=== PATIENT | female | born 1950 | race Caucasian/White ===

== ENCOUNTER → 2018-04-18 | Outpatient (CLI) | payer MEDICARE, OTHER ==
[2017-10-05 07:00] VITALS: BP 140/68
[~2018-04-18] MED LIST: CHOL2000 PO; FLUT9.9S NS; LORA10TA68 PO
--- NOTE | 2018-04-18 14:24 | CARD ---
MR#: [id number] Date of Study: 04/18/2018 Ordering Physician: JOHN GORMAN, Referring Physician: JOHN GORMAN, Tech: Pattie Goodson APPROVED REPORT EXAM: Two-dimensional and M-mode echocardiogram with Doppler and color Doppler. Other Information Quality : AverageHR: 69bpm Rhythm : Atrial FibrillationNSR INDICATION History of Super Ventricular Tachycardia 2D DIMENSIONS RVDd1.9 (2.9-3.5cm)Left Atrium(2D)2.3 (1.6-4.0cm) IVSd0.6 (0.7-1.1cm)Aortic Root(2D)3.0 (2.0-3.7cm) LVDd4.0 (3.9-5.9cm)LVOT Diameter1.9 (1.8-2.4cm) PWd1.1 (0.7-1.1cm)LVDs2.6 (2.5-4.0cm) FS (%) 33.5 %SV43.4 ml LVEF(%)62.9 (>50%) Aortic Valve AoV Peak North.127.1cm/sAoV VTI28.4cm AO Peak GR.6.5mmHgLVOT Peak North.108.2cm/s AO Mean GR.3mmHgAVA (VMAX)2.35cm2 Mitral Valve MV E Txeovvct94.6cm/sMV DECEL SDMX046qw MV A Xwlgpdaa87.8cm/sE/A Ratio1.1 Pulmonary Valve PV Peak Rrrvylxi72.1cm/s Tricuspid Valve TR P. Auuokmbm949bs/sRAP OZKZVSRE1dmPu TR Peak Gr.79edZfKWDZ77uwXe LEFT VENTRICLE The left ventricle is normal size. There is normal left ventricular wall thickness. The left ventricu lar systolic function is normal and the ejection fraction is within normal range. The Ejection Fracti on is 55-60%. There is normal LV segmental wall motion. Transmitral Doppler flow pattern is Grade II- pseudonormal filling dynamics. RIGHT VENTRICLE The right ventricle is normal size. There is normal right ventricular wall thickness. The right ventr icular systolic function is normal. ATRIA The left atrium size is normal. The right atrium size is normal. The interatrial septum is intact wit h no evidence for an atrial septal defect or patent foramen ovale as noted on 2-D or Doppler imaging. AORTIC VALVE The aortic valve is normal in structure and function. Doppler and Color Flow revealed no significant aortic regurgitation. There is no significant aortic valvular stenosis. MITRAL VALVE The mitral valve is normal in structure and function. There is no mitral valve stenosis. Doppler and Color Flow revealed no mitral valve regurgitation noted. TRICUSPID VALVE The tricuspid valve is normal in structure and function. Doppler and Color Flow revealed trace tricus pid regurgitation. There is no tricuspid valve stenosis. PULMONIC VALVE The pulmonic valve is not well visualized. Doppler and Color Flow revealed no pulmonic valvular regur gitation. GREAT VESSELS The aortic root is normal in size. The IVC is normal in size and collapses >50% with inspiration. PERICARDIAL EFFUSION There is no evidence of significant pericardial effusion. Critical Notification Critical Value: No <Conclusion> The left ventricle is normal size. The left ventricular systolic function is normal and the ejection fraction is within normal range. The Ejection Fraction is 55-60%. There is no significant aortic valvular stenosis. Doppler and Color Flow revealed no significant aortic regurgitation. Doppler and Color Flow revealed no mitral valve regurgitation noted. Doppler and Color Flow revealed trace tricuspid regurgitation. Signed by : Lazaro Dumont MD Electronically Approved : 04/18/2018 14:23:38
== END | disposition home or self-care (01) ==
LOC: ECHO 12:08
PROVIDERS: ATTEND Internal Medicine Cardiovascular Disease
DX: I49.9 Cardiac arrhythmia, unspecified (principal)
CPT/HCPCS: 93306

== ENCOUNTER → 2019-06-10 | Outpatient (CLI) | payer MEDICARE, OTHER ==
[2017-10-05 07:00] VITALS: BP 140/68
--- NOTE | 2019-06-10 16:23 | CARD ---
MR#: [id number] Date of Study: 06/10/2019 Ordering Physician: JOHN GORMAN, Referring Physician: JOHN GORMAN, Tech: Pattie Goodson APPROVED REPORT EXAM: Two-dimensional and M-mode echocardiogram with Doppler and color Doppler. Other Information Quality : FairHR: 72bpm INDICATION Arrhythmia 2D DIMENSIONS Left Atrium(2D)2.2 (1.6-4.0cm)IVSd1.0 (0.7-1.1cm) Aortic Root(2D)2.9 (2.0-3.7cm)LVDd3.8 (3.9-5.9cm) LVOT Diameter2.1 (1.8-2.4cm)PWd0.8 (0.7-1.1cm) LVDs2.3 (2.5-4.0cm)FS (%) 38.4 % SV42.5 mlLVEF(%)69.4 (>50%) Aortic Valve AoV Peak North.108.0cm/sAoV VTI17.6cm AO Peak GR.4.7mmHgLVOT Peak North.84.6cm/s LVOT VTI 17.01cmAO Mean GR.2mmHg [place] (VMAX)2.16ax6ISP (VTI)3.21cm2 Mitral Valve MV E Jffanpdl72.2cm/sMV DECEL LGRW671mu MV A Tsvwzaib80.4cm/sMV SCJ897ol E/A Ratio1.0MVA (PHT)2.12cm2 TDI E/Lateral E'5.0E/Medial E'7.8 Pulmonary Valve PV Peak Uivuzint438.7cm/sPV Peak Grad.4mmHg Tricuspid Valve TR P. Cuirhusj666ly/sRAP PHDURWAZ3miHv TR Peak Gr.72rwJrDXGL73lfSx Pulmonary Vein S1 Uhsghktq79.2cm/sD2 Ouvtqjyu06.6cm/s PVa rscljfic558kuay LEFT VENTRICLE The left ventricle is normal size. There is normal left ventricular wall thickness. The left ventricu lar systolic function is normal and the ejection fraction is within normal range. The Ejection Fracti on is 55%. There is normal LV segmental wall motion. Transmitral Doppler flow pattern is Grade I-abno rmal relaxation pattern. RIGHT VENTRICLE The right ventricle is normal size. There is normal right ventricular wall thickness. The right ventr icular systolic function is normal. ATRIA The left atrium size is normal. The right atrium size is normal. The interatrial septum is intact wit h no evidence for an atrial septal defect or patent foramen ovale as noted on 2-D or Doppler imaging. AORTIC VALVE The aortic valve is thickened but opens well. Doppler and Color Flow revealed no significant aortic r egurgitation. There is no significant aortic valvular stenosis. MITRAL VALVE The mitral valve is normal in structure and function. There is no evidence of mitral valve prolapse. There is no mitral valve stenosis. Doppler and Color-flow revealed trace mitral regurgitation. TRICUSPID VALVE The tricuspid valve is normal in structure and function. Doppler and Color Flow revealed trace tricus pid regurgitation with an estimated PAP of 25 mmHg. There is no tricuspid valve stenosis. PULMONIC VALVE The pulmonic valve is not well visualized. Doppler and Color Flow revealed no pulmonic valvular regur gitation. There is no pulmonic valvular stenosis. GREAT VESSELS The aortic root is normal in size. The IVC is normal in size and collapses >50% with inspiration. PERICARDIAL EFFUSION There is no evidence of significant pericardial effusion. Critical Notification Critical Value: No <Conclusion> The left ventricular systolic function is normal and the ejection fraction is within normal range. Th e Ejection Fraction is 55%. There is normal LV segmental wall motion. Signed by : Mookie Mcfadden, Electronically Approved : 06/10/2019 16:23:11
== END | disposition home or self-care (01) ==
LOC: ECHO 10:45
PROVIDERS: ATTEND Internal Medicine Cardiovascular Disease
DX: I49.9 Cardiac arrhythmia, unspecified (principal)
CPT/HCPCS: 93306

== ENCOUNTER → 2019-09-02 | Outpatient (CLI) | payer MEDICARE, OTHER ==
[2017-10-05 07:00] VITALS: BP 140/68
[~2019-09-02] MED LIST changes: +REGADENOSON 0.4 MG/5 ML DISP.SYRIN. IV ONE
--- NOTE | 2019-09-04 14:40 | RAD ---
MR#: [id number] Date of Study: 09/02/2019 Ordering Physician: JOHN GORMAN Referring Physician: ANA HOOPER Tech: RT Abrahan MuñozR) (N) APPROVED REPORT Test Type: Pharmacological Stress Nurse/Tech: Mónica Rushing RN Test Indications: PSVT Cardiac History: Family history Medications: See Electronic Medical Record Medical History: See Electronic Medical Record Resting ECG: SR with PVCs Resting Heart Rate: 67 bpm Resting Blood Pressure: 134/71mmHg Pretest Chest Pain: No chest pain Nurse/Tech Notes S1,S2 and lungs clear to auscultation. Consent: The procedure was explained to the patient in lay terms. Informed consent was witnessed. Dawood eout was entered into [employer] History and Stress Test performed by RT Wanda (R) (N) Pharm. Details Pharmacologic stress testing was performed using 0.4mg per 5ml of regadenoson given intravenously ove r 7-10 seconds. Stress Symptoms Fatigue POST EXERCISE Reason for Termination: Infusion complete Target HR: No Max HR: 116 bpm Max Blood Pressure: 136/58mmHg Blood Pressure response to exercise: Normal blood pressure response during stress. Heart Rate response to exercise: WNL Chest Pain: No. Arrhythmia: Yes. PVCs ST Change: No. INTERPRETATION Stress EKG Conclusion: Baseline EKG showed sinus rhythm. No ischemic changes at peak stress. PVC's without any significant arrhythmias. Imaging Protocol IMAGE PROTOCOL: Rest Tc-99m/stress Tc-99m 1 day Rest: Stress: Viability: Radiopharm.Tc99m LzuoetumdDj78k Sestamibi Dose10.5mCi 30mCi Duration 15min. 10min. Img Date 09/02/2019 09/02/2019 Inj-Img Ofwq85elg. 60min. Rest Admin Site:IV - Left AntecubitalAdministrator:RT Lanre Muñoz)(N) Stress Admin Site: IV - Left AntecubitalAdministrator: THEODORA Hoyos, ARRT (R)(N) STRESS DATA End Diast. Vol.41.0mlAv. Heart Rate88.0bpm End Syst. Vol.4.0mlCO Index BSA0.0L/min Myocardial Mass82.0gEject. Jdltwegg53.0% Stress Rates Pk. Fill Rate3.73EDV/secLVtime Pk. Fill 177.98msec Pk. Empty Rate5.29ESV/secLVtime Pk. Fikbi325.45msec 1/3 Pk. Fill1.12EDV/sec Stress Scores Regional WT0.00Summed WT0.00 Regional WM0.00Summed WM1.00 LV Perf. Quant 17 Seg. SSS0.00 17 Seg. SRS2.00 17 Seg. SDS0.00 Stress Defect Extent (% LAD)0.00Rest Defect Extent (% LAD)1.30Rev. Defect Extent (% LAD)0.00 Stress Defect Extent (% LCX) 0.00Rest Defect Extent (% LCX)0.00Rev. Defect Extent (% LCX)0.00 Stress Defect Extent (% RCA)0.00Rest Defect Extent (% RCA)0.00Rev. Defect Extent (% RCA)0.00 Stress Defect Extent (% BRENTON)0.00Rest Defect Extent (% BRENTON)2.60Rev. Defect Extent (% BRENTON)0.00 Conclusion 1. Regadenoson cardioisotope stress test did not show any evidence of ischemia or infarct. 2. Normal left ventricular systolic function with ejection fraction calculated at >80%. 3. Low risk for cardiac events. Signed by : John Gorman, Electronically Approved : 09/02/2019 14:08:05
== END | disposition home or self-care (01) ==
LOC: NM 07:35
PROVIDERS: ATTEND Internal Medicine Cardiovascular Disease
DX: I47.1 Supraventricular tachycardia (principal)
CPT/HCPCS: 78452; 93017; A9500; J2785

== ENCOUNTER → 2021-07-12 | Outpatient (CLI) | payer MEDICARE, OTHER ==
[2017-10-05 07:00] VITALS: BP 140/68
[~2021-07-12] MED LIST changes: -REGADENOSON 0.4 MG/5 ML DISP.SYRIN. IV ONE
--- NOTE | 2021-07-12 16:34 | CARD ---
MR#: [id number] Date of Study: 07/12/2021 Ordering Physician: JOHN GORMAN, Referring Physician: JOHN GORMAN Tech: Melinda Minor [facility] APPROVED REPORT EXAM: Two-dimensional and M-mode echocardiogram with Doppler and color Doppler. Other Information Quality : AverageHR: 68bpm Rhythm : NSR INDICATION Palpitations 2D DIMENSIONS RVDd3.0 (2.9-3.5cm)Left Atrium(2D)2.7 (1.6-4.0cm) IVSd0.8 (0.7-1.1cm)Aortic Root(2D)3.1 (2.0-3.7cm) LVDd3.8 (3.9-5.9cm)LVOT Diameter1.6 (1.8-2.4cm) PWd0.9 (0.7-1.1cm)LVDs2.6 (2.5-4.0cm) FS (%) 31.7 %SV37.6 ml Aortic Valve AoV Peak North.106.0cm/sAoV VTI24.5cm AO Peak GR.4.5mmHgLVOT Peak North.113.1cm/s AO Mean GR.2mmHgAVA (VMAX)2.23cm2 Mitral Valve MV E Gryfmkqt53.0cm/sMV DECEL YWJP940xe MV A Pnmovffb02.0cm/sE/A Ratio0.9 Tricuspid Valve TR P. Iyczngqh089al/sTR Peak Gr.25mmHg LEFT VENTRICLE The left ventricle is normal size. There is normal left ventricular wall thickness. The left ventricu lar systolic function is normal and the ejection fraction is within normal range. LV ejection fracti on of 50 to 55%. There is normal LV segmental wall motion. The left ventricular diastolic function an d filling is normal for age. RIGHT VENTRICLE The right ventricle is normal size. There is normal right ventricular wall thickness. The right ventr icular systolic function is normal. ATRIA The left atrium size is normal. The right atrium size is normal. The interatrial septum is intact wit h no evidence for an atrial septal defect or patent foramen ovale as noted on 2-D or Doppler imaging. AORTIC VALVE The aortic valve is normal in structure and function. Doppler and Color Flow revealed no significant aortic regurgitation. There is no significant aortic valvular stenosis. MITRAL VALVE The mitral valve is normal in structure and function. There is no evidence of mitral valve prolapse. There is no mitral valve stenosis. Doppler and Color-flow revealed mild mitral regurgitation. TRICUSPID VALVE The tricuspid valve is normal in structure and function. Doppler and Color Flow revealed trace tricus pid regurgitation. Estimated PAP 30 mmHg. There is no tricuspid valve stenosis. PULMONIC VALVE The pulmonary valve is normal in structure and function. Doppler and Color Flow revealed no pulmonic valvular regurgitation. GREAT VESSELS The aortic root is normal in size. The ascending aorta is normal in size. The IVC is normal in size a nd collapses >50% with inspiration. PERICARDIAL EFFUSION There is no evidence of significant pericardial effusion. Critical Notification Critical Value: No <Conclusion> The left ventricle is normal size. The left ventricular systolic function is normal and the ejection fraction is within normal range. LV ejection fraction of 50 to 55%. Doppler and Color Flow revealed no significant aortic regurgitation. There is no significant aortic valvular stenosis. Doppler and Color-flow revealed mild mitral regurgitation. Doppler and Color Flow revealed trace tricuspid regurgitation. Estimated PAP 30 mmHg. Signed by : Lazaro Dumont MD Electronically Approved : 07/12/2021 16:33:23
== END ==
LOC: ECHO 07:24
PROVIDERS: ATTEND Internal Medicine Cardiovascular Disease
DX: I34.0 Nonrheumatic mitral (valve) insufficiency (principal); I47.1 Supraventricular tachycardia
CPT/HCPCS: 93306